=== PATIENT | female | born 1995 | race Caucasian/White ===

== ENCOUNTER → 2024-01-06 | Emergency (ER) | payer SELFPAY ==
[~2024-01-06] MED LIST: ACETAMINOPHEN 500 MG TAB ONE; AMOX/K CLAV 875 MG TAB ONE
--- NOTE | 2024-01-06 18:57 | ER ---
Nurse's Notes [facility] Name: Amparo Amezquita Age: 28 yrs Sex: Female : 1995 Arrival Date: 01/06/2024 Time: 18:23 Bed DIS1 Private MD: Diagnosis: Disorder of teeth and supporting structures, unspecified Presentation: 01/06 18:37 Chief complaint: Patient states: Toothache that got worse yesterday. Coronavirus nj1 screen: Vaccine status: Patient reports being unvaccinated. Ebola Screen: Patient denies travel to an Ebola-affected area in the 21 days before illness onset. Initial Sepsis Screen: Does the patient meet any 2 criteria? HR > 90 bpm. No. Patient's initial sepsis screen is negative. Does the patient have a suspected source of infection? No. Patient's initial sepsis screen is negative. Risk Assessment: Do you want to hurt yourself or someone else? Patient reports no desire to harm self or others. Onset of symptoms was January 05, 2024. 18:37 Method Of Arrival: Ambulatory nj 18:37 Acuity: JARRET 4 nj1 Historical: - Allergies: 18:39 Clindamycin; nj1 18:39 Gentamicin; nj1 18:39 morphine; nj1 - PMHx: 18:39 None; nj1 - PSHx: 18:39 section; section; nj1 - Immunization history:: Client reports having NOT received the Covid vaccine. - Social history:: Smoking status: Patient denies any tobacco usage or history of. Screenin:07 [facility] ED Fall Risk Assessment (Adult) History of falling in the last 3 months, vc1 including since admission No falls in past 3 months (0 pts) Confusion or Disorientation No (0 pts) Intoxicated or Sedated No (0 pts) Impaired Gait No (0 pts) Mobility Assist Device Used No (0 pt) Altered Elimination No (0 pt) Score/Fall Risk Level 0 - 2 = Low Risk Oriented to surroundings, Maintained a safe environment, Educated pt \T\ family on fall prevention, incl call for assistance when getting out of bed. Abuse screen: Denies threats or abuse. Nutritional screening: No deficits noted. Tuberculosis screening: No symptoms or risk factors identified. Assessment: 19:08 Pain: Complains of pain in upper right first molar (#3) Pain currently is 10 out of 10 vc1 on a pain scale. EENT: Reports pain in upper right first molar (#3). Vital Signs: 18:37 BP 149 / 89; Pulse 100; Resp 16 S; Temp 98.9; Pulse Ox 100% ; Weight 95.25 kg; Height 5 nj1 ft. 7 in. ; Pain 10/10; 18:37 Body Mass Index 32.89 (95.25 kg, 170.18 cm) nj1 18:37 Pain Scale: Adult [facility] ED Course: 18:25 Patient arrived in ED. rg4 18:26 Angelo Gómez PA is PHCP. cp 18:26 Angelo Mccord MD is Attending Physician. cp 18:39 Triage completed. nj1 18:39 Arm band placed on right wrist. nj1 18:56 Elio Dudley DDS is Referral Physician. cp 19:07 No provider procedures requiring assistance completed. Patient did not have IV access vc1 during this emergency room visit. Administered Medications: 19:07 Drug: Amoxicillin-Clavulanate PO 875 mg PO once Route: PO; vc1 19:07 Drug: Acetaminophen PO 1000 mg PO once Route: PO; vc1 Medication: 19:07 VIS not applicable for this client. vc1 Outcome: 18:56 Discharge ordered by MD. cp 19:08 Discharged to home ambulatory, vc1 19:08 Condition: good 19:08 Discharge instructions given to patient, Instructed on discharge instructions, follow up and referral plans. medication usage, Demonstrated understanding of instructions, follow-up care, medications, Prescriptions given X 2, 19:09 Patient left the ED. vc1 Signatures: Angelo Gómez PA PA cp Garcia, Rubi rg4 Kaila Mehta RN RN vc1 Bushra Hernandez RN RN nj1
--- NOTE | 2024-01-06 18:57 | EDPHYS ---
Physician Documentation [facility] Name: Amparo Amezquita Age: 28 yrs Sex: Female : 1995 Arrival Date: 01/06/2024 Time: 18:23 Bed DIS1 Private MD: ED Physician Angelo Mccord HPI: 01/06 18:49 This 28 yrs old Female presents to ER via Ambulatory with complaints of Toothache. cp 18:49 The patient presents with pain. The problem is located in the right upper molar. Onset: cp The symptoms/episode began/occurred this morning. Duration: The symptoms are continuous, and are steadily getting worse. Associated signs and symptoms: The patient has no apparent associated signs or symptoms. Severity of symptoms: in the emergency department the symptoms are unchanged, despite home interventions, took 3 Motrin. Historical: - Allergies: 18:39 Clindamycin; nj1 18:39 Gentamicin; nj1 18:39 morphine; nj1 - PMHx: 18:39 None; nj1 - PSHx: 18:39 section; section; nj1 - Immunization history:: Client reports having NOT received the Covid vaccine. - Social history:: Smoking status: Patient denies any tobacco usage or history of. ROS: 18:50 ENT: Positive for dental pain, ear pain, Negative for drainage from ear(s), sore cp throat, difficulty swallowing, difficulty handling secretions, 18:50 Respiratory: Negative for cough, shortness of breath, wheezing, 18:50 Abdomen/GI: Negative for abdominal pain, vomiting, diarrhea, constipation, 18:50 Skin: Negative for rash, 18:50 Neuro: Negative for altered mental status, dizziness, headache, weakness, 18:50 All other systems are negative, Exam: 18:50 Head/Face: Normocephalic, atraumatic. cp 18:50 Constitutional: The patient appears in no acute distress, alert, awake, non-toxic, well developed, well nourished, 18:50 Eyes: Periorbital structures: appear normal, Conjunctiva: normal, no exudate, no injection, Sclera: no appreciated abnormality, Lids and lashes: appear normal, bilaterally, 18:50 ENT: External ear(s): are unremarkable, Ear canal(s): are normal, clear, TM's: dullness, bilaterally, Nose: is normal, Mouth: Lips: moist, Oral mucosa: moist, Posterior pharynx: Airway: no evidence of obstruction, patent, Dental exam: abscess, is not appreciated, dental caries, that is mild, diffusely, fractured teeth are noted, specifically the upper right first molar (#3), pain, that is moderate, specifically in the upper right first molar (#3), Voice: is normal, 18:50 Neck: ROM/movement: is normal, is supple, without pain, no range of motions limitations, no meningismus, Lymph nodes: no appreciated lymphadenopathy, 18:50 Chest/axilla: Inspection: normal, 18:50 Cardiovascular: Rate: tachycardic, Rhythm: regular, 18:50 Respiratory: the patient does not display signs of respiratory distress, Respirations: cp normal, no use of accessory muscles, labored breathing, is not present, Breath sounds: are clear throughout, no decreased breath sounds, no stridor, no wheezing, Vital Signs: 18:37 BP 149 / 89; Pulse 100; Resp 16 S; Temp 98.9; Pulse Ox 100% ; Weight 95.25 kg; Height 5 nj1 ft. 7 in. ; Pain 10/10; 18:37 Body Mass Index 32.89 (95.25 kg, 170.18 cm) nj1 18:37 Pain Scale: Adult nj1 MDM: 18:49 Patient medically screened. cp 18:55 Differential diagnosis: dental caries, dental abscess, pericoronitis, aphthous ulcers, cp gingivostomatitis. 18:56 Data reviewed: vital signs, nurses notes, and as a result, I will discharge patient. cp 18:56 Counseling: I had a detailed discussion with the patient and/or guardian regarding the cp historical points, exam findings, and any diagnostic results supporting the discharge/admit diagnosis, the need for outpatient follow up, for definitive care, a dentist, to return to the emergency department if symptoms worsen or persist or if there are any questions or concerns that arise at home. Administered Medications: 19:07 Drug: Amoxicillin-Clavulanate PO 875 mg PO once Route: PO; vc1 19:07 Drug: Acetaminophen PO 1000 mg PO once Route: PO; vc1 Disposition Summary: 01/06/24 18:56 Discharge Ordered Notes: Location: Home cp Problem: new cp Symptoms: have improved cp Condition: Stable cp Diagnosis - Disorder of teeth and supporting structures, unspecified cp Followup: cp - With: Elio Dudley DDS - When: 2 - 3 days - Reason: Recheck today's complaints Discharge Instructions: - Discharge Summary Sheet cp - Dental Pain cp Forms: - Medication Reconciliation Form cp - Thank You Letter cp - Antibiotic Education cp - Prescription Opioid Use cp - Patient Portal Instructions cp - Leadership Thank You Letter cp Prescriptions: - Amoxicillin 875 mg Oral Tablet - take 1 tablet ORAL route every 12 hours for 10 days; 20 tablet; Refills: 0, cp Product Selection Permitted - Diclofenac Sodium 75 mg Oral Tablet Sustained Release - take 1 tablet ORAL route 2 times per day; 30 tablet; Refills: 0, Product cp Selection Permitted Signatures: Angelo Gómez PA PA cp Calcote, Vanessa RN RN vc1 Bushra Hernandez RN RN nj1
[2024-01-06 19:22] VITALS: BP 149/89; TEMP 98.9; O2SAT 100
== END ==
LOC: ER 18:23
DX: K08.89 Other specified disorders of teeth and supporting structures (principal)
CPT/HCPCS: 99283